=== PATIENT | male | born 1990 | race Caucasian/White ===

== ENCOUNTER 2018-03-03 14:43 | Emergency (ER) | payer SELFPAY ==
[~2018-03-03 14:43] MED LIST: AMOX-362 PO; HYDR-317 PO; HYDR-4309 PO; PENI-24 PO
--- NOTE | 2018-03-03 14:52 | ER Report ---
History and Physical Time Seen By MD: 14:52 HPI/ROS CHIEF COMPLAINT: Tooth pain HISTORY OF PRESENT ILLNESS: 27-year-old male with history of fractured tooth right lower molar is not sure when it happened but it was a long time ago, presents with dental pain worse with pressure has been trying to chew on the other side onset yesterday but worsened severely today while at work has become unbearable. He is considered for dental infection.. He is planning to see a dentist but came here for antibiotics and pain control. Denies discharge from the gums. No fevers chills nausea vomiting or other concerns. Affected tooth is not sensitive to hot or cold per patient report. REVIEW OF SYSTEMS: Respiratory: No cough, no dyspnea. Cardiovascular: No chest pain, no palpitations. Gastrointestinal: No vomiting, no abdominal pain. Musculoskeletal: No back pain. Allergies: Coded Allergies: No Known Drug Allergies (Unverified , 07/28/16) Home Meds Discontinued Scripts Penicillin V Potassium 500 Mg Tab (PENICILLIN V POTASSIUM 500 MG TAB) 500 Mg Tablet, 500 MG PO Q8H, #30 Prov:ERASMO ANTONIO DO 07/28/16 Hydrocodone/Acetaminophen (Lortab 5-325 mg Tablet) 1 Each Tablet, 1 TAB PO Q4-6H , #20 Prov:ERASMO ANTONIO DO 07/28/16 Hx Smoking: Yes Smoking Status: Current: Every Day Smoker Constitutional Vital Sign - Last 24 Hours 03/03/18 14:54 Temp 98.8 Pulse 89 Resp 16 B/P (MAP) 102/83 Pulse Ox 97 O2 Delivery Room Air Physical Exam General Appearance: The patient is alert, has no immediate need for airway protection and no current signs of toxicity. No acute distress Eyes: Pupils equal and round no injection. Dental exam: Right lower molar with severe erosions and dentin appears visible Respiratory: Chest is non tender, lungs are clear to auscultation. Cardiac: regular rate and rhythm no murmurs gallops or rubs Gastrointestinal: Abdomen is soft and non tender, no masses, bowel sounds normal. Musculoskeletal: Neck: Neck is supple and non tender. Extremities have full range of motion and are non tender. Skin: No rashes or lesions. No edema DIFFERENTIAL DIAGNOSIS: After history and physical exam differential diagnosis was considered for dental abscess periodontal abscess dental fracture Medical Decision Making ED Course/Re-evaluation ED Course Plan of care agreed upon patient agrees to see a dentist as soon as possible after discharge. Decision to Disposition Date: Mar 03, 2018 Decision to Disposition Time: 15:05 Depart Departure Latest Vital Signs Vital Signs Date Time Temp Pulse Resp B/P (MAP) Pulse Ox O2 Delivery O2 Flow Rate FiO2 03/03/18 14:54 98.8 89 16 102/83 97 Room Air Impression: Primary Impression: Dentalgia Condition: Improved Disposition: HOME OR SELF-CARE New Scripts Hydrocodone Bit/Acetaminophen (HYDROCODON-ACETAMINOPHEN 5-325) 1 Each Tablet 1 EACH PO Q4H Y for PAIN, #12 TAB 0 Refills Prov: DESHAWN FULLER MD 03/03/18 Penicillin V Potassium 500 Mg Tab (PENICILLIN V POTASSIUM 500 MG TAB) 500 Mg Tablet 500 MG PO QID for 10 Days, #40 TAB Prov: DESHAWN FULLER MD 03/03/18 Patient Instructions: Dental Caries (ED) DESHAWN FULLER MD Mar 03, 2018 14:52
[2018-03-03] MEDS ORDERED: LOR5/325 PO (15:07)
[2018-03-03] MEDS ORDERED: PENI-24 PO (15:07)
[2018-03-03 15:15] VITALS: BP 114/74
== END 2018-03-03 15:17 | disposition home or self-care (01) ==
LOC: ER 14:56
DX: K08.89 Other specified disorders of teeth and supporting structures (principal)
CPT/HCPCS: 99282